=== PATIENT | male | born 2005 | race Caucasian/White ===

== ENCOUNTER 2024-02-07 12:32 | Inpatient (IN) | payer MEDICAID, OTHER ==
[~2024-02-07] VITALS: Ht 190.5 cm; Wt 104.3 kg
[2024-02-07 13:01] LABS: COVID AG,FIA SOURCE NASAL SWAB
[2024-02-07 13:05] LABS: BASOPHILS % (AUTO) 0.5 % (0.0-2.0); HEMATOCRIT 44.2 % (41-53); LYMPHOCYTES # (AUTO) 1.2 K/uL (1.0-4.8); LYMPHOCYTES % (AUTO) 14.9 % (22.0-44.0); MEAN CORPUSCULAR VOLUME 82 fL (80-100); MONOCYTES # (AUTO) 0.3 K/uL (0.1-1.0); NEUTROPHILS # (AUTO) 6.4 K/uL (1.8-7.7); NEUTROPHILS % (AUTO) 77.6 % (40.0-70.0); PLATELET COUNT (AUTO) 280 K/uL (150-450); RED BLOOD CELL COUNT(AUTO) 5.36 MIL/uL (4.50-5.90); RED CELL DISTRIBUTION WIDTH 12.7 % (11.5-14.5); WHITE BLOOD COUNT (AUTO) 8.3 K/uL (4.5-11.0)
[2024-02-07 13:20] LABS: ANION GAP 5 mmol/L (8-16); CALCIUM, TOTAL 8.9 mg/dL (8.8-10.5); CARBON DIOXIDE 28 mmol/L (22-29); CHLORIDE 99 mmol/L (98-107); GLOMERULAR FILTR. RATE CALC > 60 mL/min (>60); GLUCOSE,RANDOM 96 mg/dL (70-110); SODIUM SERUM 132 mmol/L (136-145); UREA NITROGEN, BLOOD 9 mg/dL (7-18)
[2024-02-07 13:24] LABS: SARS-COV2 (COVID) ANTIGEN,FIA Negative (Negative)
[2024-02-07 13:59] LABS: ALCOHOL, BLOOD (SERUM) < 3 mg/dL (0-10)
[2024-02-07] MEDS ORDERED: CLON0.1T2 PO (14:17)
[2024-02-07] MEDS ORDERED: FLUO-418 PO (14:17)
[2024-02-07] MEDS: PERTUSS(ACELL),DIPH,TET/PF 0.5 ML SYRINGE [ADULT] IM. ONE (14:35)
[2024-02-07] MEDS: BACITRACIN 0.9 GM PACKET OINTMENT TP ONE (14:36)
[2024-02-07 15:36] LABS: PH,URINE DRUG SCREEN 7.5 (5.0-8.0)
[2024-02-07 15:44] LABS: AMPHET/METH SCREEN,URINE NEGATIVE (NEGATIVE); BARBITURATE SCREEN, URINE NEGATIVE (NEGATIVE); BENZODIAZEPINES SCREEN,URINE NEGATIVE (NEGATIVE); CANNABINOID SCREEN,URINE NEGATIVE (NEGATIVE); COCAINE SCREEN,URINE NEGATIVE (NEGATIVE); METHADONE SCREEN, URINE NEGATIVE (NEGATIVE); OPIATE SCREEN,URINE NEGATIVE (NEGATIVE); PHENCYCLIDINE SCREEN,URINE NEGATIVE (NEGATIVE)
[2024-02-07 15:45] LABS: ALCOHOL, URINE DRUG SCREEN NEGATIVE (NEGATIVE)
[2024-02-07] MEDS ORDERED: ALBUTEROL SULFATE HFA 90 MCG/PUFF 8 GM INHALER IH PRN (21:00)
[2024-02-07 21:23] VITALS: BP 138/86; PULSE 103; PULSE 88; RESP 18; TEMP 97.7; O2SAT 99
[2024-02-07] MEDS ORDERED: LOPERAMIDE HCL 2 MG CAPSULE PO PRN (22:00)
[2024-02-07] MEDS ORDERED: GuaiFENesin/D-METHORPHAN [SUGAR-FREE] 200-20MG/10 ML SYRUP UDCUP PO PRN (22:00)
[2024-02-07] MEDS ORDERED: HydrOXYzine PAMOATE 50 MG CAPSULE PO PRN (22:00)
[2024-02-07] MEDS: ZOLPIDEM TARTRATE 10 MG TABLET PO PRN (22:19)
[2024-02-07] MEDS: CYANOCOBALAMIN 1,000 MCG/ML VIAL IM ONE (22:19)
[2024-02-08] MEDS: OLANZapine 5 MG RAPDIS TABLET PO PRN (02:39)
[2024-02-08] MEDS: LORazepam 2 MG TABLET PO PRN (02:39)
[2024-02-08] MEDS: FOLIC ACID 1 MG TABLET PO SCH (08:08)
[2024-02-08] MEDS: THIAMINE 100 MG TABLET PO SCH (08:08)
[2024-02-08] MEDS: MULTIVITAMINS WITH MINERALS, THERAPEUTIC TABLET PO SCH (08:08)
[2024-02-08] MEDS: FLUoxetine HCL 20 MG CAPSULE PO SCH (08:08)
[2024-02-08 14:53] VITALS: BP 131/78; PULSE 90; RESP 16; TEMP 97.9; O2SAT 99
[2024-02-08 20:00] VITALS: BP 127/64; PULSE 98; RESP 16; TEMP 97.5; O2SAT 98
[2024-02-08] MEDS ORDERED: DIVALPROEX SODIUM 500 MG ER TABLET PO SCH (21:00)
[2024-02-08] MEDS: MELATONIN 5 MG TABLET PO SCH (22:28)
[2024-02-09 08:46] LABS: HEMOGLOBIN A1C 5.5 % (3.8-5.6)
[2024-02-09] MEDS: FLUoxetine HCL 20 MG CAPSULE PO SCH (08:49)
[2024-02-09 08:51] LABS: ANION GAP 8 mmol/L (8-16); CALCIUM, TOTAL 8.8 mg/dL (8.8-10.5); CARBON DIOXIDE 27 mmol/L (22-29); CHLORIDE 102 mmol/L (98-107); CHOL/HDL RATIO 5.5 (4.2-7.3); CHOLESTEROL 172 mg/dL (131-200); CREATININE 0.74 mg/dL (0.60-1.30); FREE T4 (FREE THYROXINE) 1.12 ng/dL (0.76-1.46); GLOMERULAR FILTR. RATE CALC > 60 mL/min (>60); GLUCOSE,RANDOM 103 mg/dL (70-110); HDL CHOLESTEROL 31 mg/dL (40-60); LDL CHOL (CALC.) 112 mg/dL (0-130); POTASSIUM 3.9 mmol/L (3.5-5.1); SODIUM SERUM 137 mmol/L (136-145); THYROID STIMULATING HORMONE 0.77 uIU/mL (0.36-3.74); TRIGLYCERIDES 147 mg/dL (15-150); UREA NITROGEN, BLOOD 12 mg/dL (7-18)
[2024-02-09] MEDS ORDERED: IBUPROFEN 600 MG TABLET PO PRN (17:30)
[2024-02-09 20:00] VITALS: BP 140/78; PULSE 95; RESP 16; TEMP 97.9; O2SAT 97
[2024-02-10 08:52] VITALS: RESP 16
[2024-02-10] MEDS: ACETAMINOPHEN 325 MG TABLET PO PRN (08:52)
[2024-02-10 09:52] VITALS: RESP 16
[2024-02-10 10:39] VITALS: BP 123/75; RESP 17; TEMP 97.8; O2SAT 100
[2024-02-10] MEDS ORDERED: FLUO-418 PO (11:39)
[2024-02-10] MEDS ORDERED: MELA5TAB40 PO (11:39)
== END 2024-02-10 14:05 | disposition home or self-care (01) | DRG 751 ==
LOC: EMS 12:32 → B3A 19:18
PROVIDERS: ADMIT Psychiatry & Neurology Psychiatry; ATTEND Psychiatry & Neurology Psychiatry
PROC: GZ56ZZZ Individual Psychotherapy, Supportive (ICD-10-PCS; principal; 2024-02-07)
PROC: GZHZZZZ Group Psychotherapy (ICD-10-PCS; 2024-02-07)
PROC: GZ51ZZZ Individual Psychotherapy, Behavioral (ICD-10-PCS; 2024-02-07)
PROC: GZ58ZZZ Individual Psychotherapy, Cognitive-Behavioral (ICD-10-PCS; 2024-02-07)
DX: F33.2 Major depressive disorder, recurrent severe without psychotic features (principal); R45.851 Suicidal ideations; F84.0 Autistic disorder; J45.909 Unspecified asthma, uncomplicated; Z20.822 Contact with and (suspected) exposure to COVID-19; Z79.899 Other long term (current) drug therapy; Z59.9 Problem related to housing and economic circumstances, unspecified; Z63.9 Problem related to primary support group, unspecified; Z65.3 Problems related to other legal circumstances
CPT/HCPCS: 80048; 80061; 80307; 83036; 84439; 84443; 85025; 90715; G0480; J3420